=== PATIENT | female | born 1965 | race African-American/Black ===

== ENCOUNTER 2019-05-07 13:57 | Emergency (ER) | payer MEDICAID ==
[~2019-05-07] VITALS: Ht 165.1 cm; Wt 69.0 kg
[2019-05-07 14:12] VITALS: BP 143/85
[2019-05-07] MEDS ORDERED: ACETAMINOPHEN 325MG TABLET PO ONE (14:30)
== END 2019-05-07 16:15 | disposition home or self-care (01) ==
LOC: ER 13:57
DX: S43.402A Unspecified sprain of left shoulder joint, initial encounter (principal); S93.602A Unspecified sprain of left foot, initial encounter; S80.212A Abrasion, left knee, initial encounter; S80.211A Abrasion, right knee, initial encounter; S23.41XA Sprain of ribs, initial encounter; I10 Essential (primary) hypertension; F17.210 Nicotine dependence, cigarettes, uncomplicated; W01.0XXA Fall on same level from slipping, tripping and stumbling without subsequent striking against object, initial encounter; Y93.01 Activity, walking, marching and hiking; Y92.9 Unspecified place or not applicable; Z90.49 Acquired absence of other specified parts of digestive tract
CPT/HCPCS: 71101; 73030; 73630; 99283

== ENCOUNTER 2020-06-30 16:57 | Emergency (ER) | payer MEDICAID, OTHER ==
[~2020-06-30] VITALS: Ht 165.1 cm; Wt 72.0 kg
[2020-06-30 17:58] VITALS: BP 145/80
[2020-06-30] MEDS ORDERED: HYDROCODONE/ACETAMINOPHEN 5/325MG TABLET PO ONE (18:00)
[2020-06-30] MEDS ORDERED: PREDNISONE 20MG TABLET PO ONE (18:15)
[2020-06-30] MEDS ORDERED: COLCHICINE 0.6MG TABLET PO ONE (18:15)
[2020-06-30 19:27] LABS: BASOPHILS % 0.6 % (0.0-2.0); EOSINOPHILS % 1.9 % (0.0-5.0); HEMATOCRIT. 38.1 % (36.0-48.0); LYMPHOCYTES % 40.6 % (20.0-50.0); MEAN CORPUSCULAR HEMOGLOBIN 30.9 pg (28.0-32.0); MEAN CORPUSCULAR VOLUME 90.9 fL (81.0-99.0); MONOCYTES % 7.2 % (2.0-8.0); NEUTROPHILS % 49.7 % (40.0-76.0); PLATELET 275 x1000/uL (130-400); RED CELL DISTRIBUTION WIDTH 12.8 % (11.6-14.6)
[2020-06-30 19:32] LABS: CHLORIDE 107 mEq/L (98-107)
== END 2020-06-30 20:11 | disposition home or self-care (01) ==
LOC: ER 16:57
DX: M10.9 Gout, unspecified (principal); I10 Essential (primary) hypertension; F17.200 Nicotine dependence, unspecified, uncomplicated; Z90.49 Acquired absence of other specified parts of digestive tract
CPT/HCPCS: 36415; 73630; 80053; 84550; 85025; 99284; J7512; Z7610

== ENCOUNTER 2021-08-02 11:10 | Emergency (ER) | payer MEDICAID, OTHER ==
[~2021-08-02] VITALS: Ht 165.1 cm; Wt 76.0 kg
[2021-08-02] MEDS ORDERED: IBUPROFEN 600MG TABLET PO ONE (11:45)
[2021-08-02 14:00] VITALS: BP 129/68
[2021-08-02] MEDS ORDERED: NAPR375T5 MT (14:15)
== END 2021-08-02 15:05 | disposition home or self-care (01) ==
LOC: ER 11:10
DX: N64.4 Mastodynia (principal); N63.20 Unspecified lump in the left breast, unspecified quadrant; I10 Essential (primary) hypertension; Z90.49 Acquired absence of other specified parts of digestive tract; Z98.890 Other specified postprocedural states
CPT/HCPCS: 76642; 99284

== ENCOUNTER 2023-01-15 00:16 | Emergency (ER) | payer MEDICAID, OTHER ==
[~2023-01-15] VITALS: Ht 165.1 cm; Wt 85.0 kg
[~2023-01-15 00:16] MED LIST: NAPR375T5 MT
[2023-01-15 00:25] VITALS: BP 155/82
[2023-01-15 01:52] LABS: BASOPHILS % 0.7 % (0.0-2.0); EOSINOPHILS % 0.9 % (0.0-5.0); HEMATOCRIT. 36.1 % (36.0-48.0); HEMOGLOBIN. 12.6 g/dL (12.0-16.0); LYMPHOCYTES % 39.3 % (20.0-50.0); MEAN CORPUSCULAR HEMOGLOBIN 31.1 pg (28.0-32.0); MEAN CORPUSCULAR VOLUME 89.4 fL (81.0-99.0); MEAN PLATELET VOLUME 9.9 fl (7.4-10.4); MONOCYTES % 7.2 % (2.0-8.0); NEUTROPHILS % 51.9 % (40.0-76.0); PLATELET 253 x1000/uL (130-400); RED BLOOD CELL COUNT 4.04 mill/uL (4.2-5.4); RED CELL DISTRIBUTION WIDTH 12.9 % (11.6-14.6)
[2023-01-15 02:00] LABS: CHLORIDE 110 mEq/L (98-107)
[2023-01-15] MEDS ORDERED: CYCL10TA21 PO (02:01)
[2023-01-15] MEDS ORDERED: NAP5EC PO (02:01)
[2023-01-15 02:02] LABS: CLARITY URINE CLEAR (CLEAR); COLOR URINE YELLOW (YELLOW); KETONES URINE TRACE (NEGATIVE); LEUKOCYTE ESTERASE URINE NEGATIVE (NEGATIVE); NITRITE URINE NEGATIVE (NEGATIVE); OCCULT BLOOD URINE NEGATIVE (NEGATIVE); PH URINE 5.5 (4.5-8.0); PROTEIN URINE NEGATIVE (NEGATIVE); SPECIFIC GRAVITY URINE 1.027 (1.005-1.030)
== END 2023-01-15 02:20 | disposition home or self-care (01) ==
LOC: ER 00:16
DX: R51.9 Headache, unspecified (principal); I10 Essential (primary) hypertension; Z90.89 Acquired absence of other organs
CPT/HCPCS: 36415; 80053; 81003; 84484; 85025; 99283

== ENCOUNTER 2024-07-03 22:48 | Emergency (ER) | payer OTHER ==
[~2024-07-03] VITALS: Ht 165.1 cm; Wt 69.0 kg
[~2024-07-03 22:48] MED LIST changes: +CYCL10TA21 PO; +NAP5EC PO
[2024-07-03 22:55] VITALS: BP 144/64; TEMP 98; O2SAT 100
[2024-07-03 22:56] VITALS: PULSE 100; RESP 16; O2SAT 100
[2024-07-03] MEDS ORDERED: P50 MT (23:11)
[2024-07-03] MEDS ORDERED: DIPH25CA83 PO (23:11)
== END 2024-07-03 23:51 | disposition home or self-care (01) ==
LOC: ER 22:55
DX: R21 Rash and other nonspecific skin eruption (principal); I10 Essential (primary) hypertension; Z98.890 Other specified postprocedural states; Z90.49 Acquired absence of other specified parts of digestive tract
CPT/HCPCS: 99283

== ENCOUNTER 2024-07-14 20:28 | Emergency (ER) | payer OTHER ==
[~2024-07-14] VITALS: Ht 167.6 cm; Wt 73.0 kg
[~2024-07-14 20:28] MED LIST changes: +DIPH25CA83 PO; +P50 MT
[2024-07-14 20:30] VITALS: BP 171/78; RESP 18; TEMP 98.2; O2SAT 98
[2024-07-14 20:31] VITALS: PULSE 87; O2SAT 99
[2024-07-14] MEDS ORDERED: CALA177S9 TP (20:51)
[2024-07-14] MEDS ORDERED: CETI10CA2 MT (20:51)
== END 2024-07-14 21:05 | disposition home or self-care (01) ==
LOC: ER 20:28
DX: R21 Rash and other nonspecific skin eruption (principal); Z79.899 Other long term (current) drug therapy
CPT/HCPCS: 99281

== ENCOUNTER 2024-07-28 09:08 | Emergency (ER) | payer OTHER ==
[~2024-07-28] VITALS: Ht 165.1 cm; Wt 73.0 kg
[~2024-07-28 09:08] MED LIST changes: +CALA177S9 TP; +CETI10CA2 MT
[2024-07-28 09:15] VITALS: O2SAT 100
[2024-07-28] MEDS: IBUPROFEN 600MG TABLET PO ONE (10:20)
[2024-07-28] MEDS: ACETAMINOPHEN 325MG TABLET PO ONE (10:20)
[2024-07-28 11:10] LABS: CLARITY URINE CLEAR (CLEAR); COLOR URINE YELLOW (YELLOW); GLUCOSE URINE NEGATIVE (NEGATIVE); KETONES URINE NEGATIVE (NEGATIVE); LEUKOCYTE ESTERASE URINE NEGATIVE (NEGATIVE); NITRITE URINE NEGATIVE (NEGATIVE); OCCULT BLOOD URINE NEGATIVE (NEGATIVE); PH URINE 5.5 (4.5-8.0); PROTEIN URINE NEGATIVE (NEGATIVE); SPECIFIC GRAVITY URINE 1.022 (1.005-1.030); UROBILINOGEN URINE 0.2 E.U./dL (0.2-1.0)
[2024-07-28] MEDS ORDERED: NAP5EC PO (11:21)
[2024-07-28] MEDS ORDERED: TOPUD MT (11:21)
[2024-07-28] MEDS ORDERED: CYCL10TA21 PO (11:21)
[2024-07-28] MEDS ORDERED: VARE1TAB22 MT (11:21)
[2024-07-28 11:39] VITALS: BP 149/88; PULSE 82; RESP 18; TEMP 37.05852; O2SAT 100
== END 2024-07-28 12:26 | disposition home or self-care (01) ==
LOC: ER 09:12
DX: M54.59 Other low back pain (principal); F17.200 Nicotine dependence, unspecified, uncomplicated; Z79.899 Other long term (current) drug therapy
CPT/HCPCS: 72100; 81003; 81025; 99284

== ENCOUNTER 2025-05-26 14:51 | Emergency (ER) | payer OTHER ==
[~2025-05-26] VITALS: Ht 167.6 cm; Wt 72.0 kg
[~2025-05-26 14:51] MED LIST changes: -NAP5EC PO; +NAPR-1494 MT; +NAPR-1495 PO; -NAPR375T5 MT; +TOPUD MT; +VARE1TAB22 MT
[2025-05-26 15:03] VITALS: O2SAT 98
[2025-05-26 15:42] LABS: BASOPHILS % 1.2 % (0.0-2.0); EOSINOPHILS % 1.7 % (0.0-5.0); HEMATOCRIT. 40.2 % (36.0-48.0); HEMOGLOBIN. 13.6 g/dL (12.0-16.0); LYMPHOCYTES % 50.6 % (20.0-50.0); MEAN PLATELET VOLUME 9.3 fl (7.4-10.4); MONOCYTES % 10.8 % (2.0-8.0); NEUTROPHILS % 35.7 % (40.0-76.0); PLATELET 261 x1000/uL (130-400); RED BLOOD CELL COUNT 4.46 mill/uL (4.2-5.4); RED CELL DISTRIBUTION WIDTH 12.6 % (11.6-14.6)
[2025-05-26 16:05] LABS: CREATININE 0.9 mg/dL (0.6-1.0); TROPONIN I HIGH SENSITIVITY < 4 ng/L (3.0-34); UREA NITROGEN BLOOD 16 mg/dL (9-23)
[2025-05-26 16:26] LABS: CLARITY URINE CLEAR (CLEAR); COLOR URINE YELLOW (YELLOW); GLUCOSE URINE NEGATIVE (NEGATIVE); KETONES URINE NEGATIVE (NEGATIVE); LEUKOCYTE ESTERASE URINE NEGATIVE (NEGATIVE); NITRITE URINE NEGATIVE (NEGATIVE); OCCULT BLOOD URINE NEGATIVE (NEGATIVE); PH URINE 5.5 (4.5-8.0); PROTEIN URINE NEGATIVE (NEGATIVE); SPECIFIC GRAVITY URINE 1.020 (1.005-1.030); UROBILINOGEN URINE 0.2 E.U./dL (0.2-1.0)
[2025-05-26] MEDS ORDERED: IBUP-2029 MT (18:47)
[2025-05-26] MEDS ORDERED: CEPH500C2 MT (18:47)
[2025-05-26 19:09] VITALS: BP 158/77; PULSE 62; RESP 18; TEMP 36.7; O2SAT 100
== END 2025-05-26 19:11 | disposition home or self-care (01) ==
LOC: ER 14:51
DX: L03.114 Cellulitis of left upper limb (principal); F10.90 Alcohol use, unspecified, uncomplicated; Z79.1 Long term (current) use of non-steroidal anti-inflammatories (NSAID); Z79.899 Other long term (current) drug therapy; Y90.9 Presence of alcohol in blood, level not specified
CPT/HCPCS: 36415; 73060; 80048; 81003; 84484; 85025; 93005; 99285